=== PATIENT | male | born 1965 | race African-American/Black ===

== ENCOUNTER 2018-10-17 16:37 | Emergency (ER) | payer BC, OTHER ==
--- NOTE | 2018-10-17 19:30 | ER ---
Nurse's Notes [facility] Name: Otoniel Joya Jr Age: 53 yrs Sex: Male : 1965 Arrival Date: 10/17/2018 Time: 16:38 Bed Waiting Private MD: Diagnosis: Presentation: 10/17 17:23 Presenting complaint: Patient states: "I had a seizure but my main concern is I have aj1 been losing a lot of blood when I have a bowel movement. I noticed it on Saturday." Patient has a history of seizures, but has not had one in the past 2 years. Patient states that he takes Keppra and carbamazepine for his seizures. States that seizure was 3 hours ago. Patient is alert and oriented in triage. Transition of care: patient was not received from another setting of care. Onset of symptoms was October 15, 2018. Risk Assessment: Do you want to hurt yourself or someone else? Patient reports no desire to harm self or others. Initial Sepsis Screen: Does the patient meet any 2 criteria? No. Patient's initial sepsis screen is negative. Does the patient have a suspected source of infection? Yes: Acute abdominal pain. Care prior to arrival: None. 17:23 Method Of Arrival: Ambulatory aj1 17:23 Acuity: NICOLASA 3 aj1 Triage Assessment: 17:26 General: Appears in no apparent distress. comfortable, Behavior is calm, cooperative, aj1 appropriate for age. Pain: Denies pain. Neuro: Level of Consciousness is awake, alert, obeys commands, Oriented to person, place, time, situation. Cardiovascular: Patient's skin is warm and dry. Respiratory: Airway is patent Respiratory effort is even, unlabored, Respiratory pattern is regular, symmetrical. GI: Reports bloody stool. Historical: - Allergies: 17:26 No Known Allergies; aj1 - PMHx: 17:26 Hypertension; Seizures; stomach ulcers; aj1 - Ebola Screening: : Patient denies travel to an Ebola-affected area in the 21 days before illness onset. Vital Signs: 17:26 BP 158 / 105; Pulse 77; Resp 18; Temp 98.4; Pulse Ox 100% on R/A; Weight 86.18 kg (R); aj1 Height 6 ft. 0 in. (182.88 cm) (R); Pain 0/10; 17:26 Body Mass Index 25.77 (86.18 kg, 182.88 cm) aj1 Dominic Coma Score: 17:26 Eye Response: spontaneous(4). Verbal Response: oriented(5). Motor Response: obeys aj1 commands(6). Total: 15. ED Course: 16:38 Patient arrived in ED. as 17:26 Triage completed. aj1 17:26 Arm band placed on Patient placed in waiting room, Patient notified of wait time. aj1 19:05 Patient's name was called from ER lobby. No response. aj1 19:15 Patient's name was called from ER lobby. No response. aj1 19:29 Patient's name was called from ER lobby. No response. Unable to locate patient. Will aj1 disposition as left without being seen by a provider. Administered Medications: No medications were administered Outcome: 19:29 Eloped from waiting room. aj1 19:30 Patient left the ED. aj1 Signatures: Qian Catalan RN RN aj1 Davida Mena as
== END 2018-10-17 19:30 | disposition left against medical advice (07) ==
LOC: ER 16:37
DX: Z02.9 Encounter for administrative examinations, unspecified (principal)
CPT/HCPCS: 99281